=== PATIENT | female | born 1945 | race Caucasian/White ===

== ENCOUNTER → 2017-11-01 | Outpatient (CLI) | payer MEDICARE, OTHER ==
[2005-04-04 07:22] VITALS: TEMP 97.3
== END ==
LOC: MC.RAD 10:11
DX: Z12.31 Encounter for screening mammogram for malignant neoplasm of breast (principal)

== ENCOUNTER → 2018-01-23 | Outpatient (CLI) | payer MEDICARE, OTHER ==
[~2018-01-23] VITALS: Ht 157.5 cm; Wt 67.3 kg
[~2018-01-23] MED LIST: CALCIUM 600MG+D1 TAB PO; DESYREL 50MG50 MG PO; MOBIC15 MG PO; NEURONTIN300 MG/CAP PO; PRAVACHOL10 MG PO
[2018-01-23 13:12] VITALS: BP 132/84; PULSE 74
[2018-01-23 14:30] VITALS: BP 162/93; PULSE 74
== END ==
LOC: COL.RAD 12:49
DX: M43.16 Spondylolisthesis, lumbar region (principal); M48.062 Spinal stenosis, lumbar region with neurogenic claudication
CPT/HCPCS: J3301

== ENCOUNTER → 2018-03-27 | Outpatient (CLI) | payer MEDICARE, OTHER ==
[~2018-03-27] VITALS: Ht 157.5 cm; Wt 67.8 kg
[~2018-03-27] MED LIST changes: +TYLENOL 325MG325 MG PO
[2018-03-27 13:17] VITALS: BP 153/87; PULSE 87
[2018-03-27 14:50] VITALS: BP 153/90; PULSE 81
== END ==
LOC: COL.RAD 12:30
DX: M43.16 Spondylolisthesis, lumbar region (principal); M48.062 Spinal stenosis, lumbar region with neurogenic claudication
CPT/HCPCS: J3301

== ENCOUNTER → 2018-06-20 | Outpatient (CLI) | payer MEDICARE, OTHER ==
[~2018-06-20] VITALS: Ht 157.5 cm; Wt 68.9 kg
[2018-06-20 12:36] VITALS: BP 140/96; PULSE 80
[2018-06-20 13:14] VITALS: BP 139/92; PULSE 70
== END ==
LOC: COL.RAD 12:00
DX: M48.061 Spinal stenosis, lumbar region without neurogenic claudication (principal); M43.16 Spondylolisthesis, lumbar region
CPT/HCPCS: J3301

== ENCOUNTER → 2018-09-17 | Outpatient (CLI) | payer MEDICARE, OTHER ==
[~2018-09-17] VITALS: Ht 157.5 cm; Wt 68.0 kg
[~2018-09-17] MED LIST changes: +MOTRIN 400400 MG/TAB PO; +PRAVACHOL 20MG20 MG PO; +ULTRAM 50MG TAB50 MG PO
[2018-09-17 10:22] VITALS: BP 161/92; PULSE 90
[2018-09-17 11:28] VITALS: BP 145/82; PULSE 81
[2018-09-17 11:35] VITALS: BP 140/80; PULSE 113
[2018-09-17 11:36] VITALS: BP 121/78; PULSE 111
== END ==
LOC: COL.CARD 09:24
DX: Z01.818 Encounter for other preprocedural examination (principal); I08.2 Rheumatic disorders of both aortic and tricuspid valves; J30.9 Allergic rhinitis, unspecified; N60.19 Diffuse cystic mastopathy of unspecified breast; E78.2 Mixed hyperlipidemia; M85.80 Other specified disorders of bone density and structure, unspecified site; Z90.710 Acquired absence of both cervix and uterus; Z91.040 Latex allergy status; Z88.2 Allergy status to sulfonamides; Z82.49 Family history of ischemic heart disease and other diseases of the circulatory system; Z82.3 Family history of stroke
CPT/HCPCS: A9500; J2785

== ENCOUNTER 2018-10-21 07:29 | Emergency (ER) | payer MEDICARE, OTHER ==
[~2018-10-21] VITALS: Ht 154.9 cm; Wt 66.4 kg
[2018-10-21 07:33] VITALS: TEMP 97.7
[2018-10-21 08:02] LABS: BASO # 0.1 (0.0-0.2); BASO % 0.5 % (0.0-2.0); EOS # 0.1 (0.0-0.7); EOS % 0.7 % (0-4.0); GRAN # 8.1 (1.4-6.5); GRAN % 77.2 % (42.2-75.2); HEMOGLOBIN 11.1 g/dl (12.5-16.0); LYMPH # 1.7 (1.2-3.4); LYMPH % 15.8 % (20.0-51.0); MEAN CELL VOLUME 94 fl (80.0-100.0); MEAN CORPUSCULAR HEMOGLOBIN 31 pg (27.0-31.0); MEAN CORPUSCULAR HGB CONC 33 g/dl (33.0-37.0); MEAN PLATELET VOLUME 8.3 fl (7.4-10.4); MONO # 0.6 (0.1-0.6); MONO % 5.5 % (1.7-9.3); PLATELET COUNT 673 K/mm3 (130-400); RED BLOOD COUNT 3.56 M/mm3 (4.10-5.30); REDCELL DISTRIBUTION WIDTH-CV 13.2 % (11.5-14.5)
[2018-10-21 08:19] LABS: ALBUMIN 4.2 gm/dL (3.5-5.0); BILIRUBIN,TOTAL 0.5 mg/dL (0.0-1.0); C-REACTIVE PROTEIN 1.1 mg/dL (0.0-0.9); CALCIUM 9.8 mg/dL (8.4-10.2); CREATININE, serum 0.54 mg/dL (0.52-1.25); POTASSIUM 3.5 mmol/L (3.4-5.0); TOTAL PROTEIN 7.1 gm/dL (6.4-8.2)
[2018-10-21 08:23] LABS: COLLECTION METHOD CLEAN CATCH
[2018-10-21 08:26] LABS: HEMATOCRIT 33.6 % (37.0-47.0)
[2018-10-21 08:46] LABS: MUCOUS Present /lpf; PH 5 (5-8); URINE APPEARANCE Hazy; URINE BACTERIA None Seen /hpf; URINE BILIRUBIN Negative (NEGATIVE); URINE BLOOD 1+ (NEGATIVE); URINE COLOR Yellow; URINE GLUCOSE Negative (NEGATIVE); URINE KETONE Trace (NEGATIVE); URINE LEUKOCYTE ESTERASE Negative (NEGATIVE); URINE NITRATE Negative (NEGATIVE); URINE PROTEIN(semi-quant) Negative (NEGATIVE); URINE RBC 0-2 /hpf; URINE UROBILINOGEN Negative (NEGATIVE)
[2018-10-21] MEDS ORDERED: ZOFRAN ODT4 MG PO (09:22)
[2018-10-21 10:28] VITALS: BP 130/76; PULSE 94
== END 2018-10-21 10:29 | disposition home or self-care (01) ==
LOC: COL.ER 07:29
PROVIDERS: Family Medicine
DX: K52.9 Noninfective gastroenteritis and colitis, unspecified (principal); E86.0 Dehydration; Z90.89 Acquired absence of other organs; Z90.710 Acquired absence of both cervix and uterus
CPT/HCPCS: J2405; J2550; J7030

== ENCOUNTER → 2018-12-23 | Outpatient (CLI) | payer MEDICARE, OTHER ==
[2005-04-04 07:22] VITALS: TEMP 97.3
[~2018-12-23] MED LIST changes: +ZOFRAN ODT4 MG PO
== END ==
LOC: MC.RAD 11-26 10:00
DX: Z12.31 Encounter for screening mammogram for malignant neoplasm of breast (principal)

== ENCOUNTER → 2020-01-23 | Outpatient (CLI) | payer MEDICARE, OTHER ==
[2005-04-04 07:22] VITALS: TEMP 97.3
== END ==
LOC: MC.RAD 08:57
DX: Z12.31 Encounter for screening mammogram for malignant neoplasm of breast (principal)

== ENCOUNTER → 2021-01-24 | Outpatient (CLI) | payer MEDICARE ==
[2005-04-04 07:22] VITALS: TEMP 97.3
== END ==
LOC: MC.RAD 10:15
DX: Z12.31 Encounter for screening mammogram for malignant neoplasm of breast (principal)

== ENCOUNTER → 2022-02-07 | Outpatient (CLI) | payer MEDICARE ==
[2005-04-04 07:22] VITALS: TEMP 97.3
== END ==
LOC: MC.RAD 01-25 10:45
DX: Z12.31 Encounter for screening mammogram for malignant neoplasm of breast (principal); N64.89 Other specified disorders of breast

== ENCOUNTER → 2022-02-10 | Outpatient (CLI) | payer MEDICARE ==
[2005-04-04 07:22] VITALS: TEMP 97.3
== END ==
LOC: MC.RAD 12:54
DX: N60.12 Diffuse cystic mastopathy of left breast (principal)